=== PATIENT | female | born 1940 | race Caucasian/White ===

== ENCOUNTER 2016-09-06 06:10 | Day surgery (SDC) | payer OTHER ==
[2016-09-06] VITALS (9 sets, daily range): BP systolic 84–154; BP diastolic 55–86; PULSE 70–85; RESP 16–20; TEMP 98–98.3; O2SAT 92–97
[~2016-09-06] VITALS: Ht 160 cm; Wt 78.2 kg
[~2016-09-06 06:10] MED LIST: ASPI81TA82 PO; ATOR20TA42 PO; CALC-179 PO; GLUC750T22 PO; IRON28TA PO; LISI-372 PO; TAB-TAB PO; VITA500015 PO
[2016-09-06] MEDS ORDERED: GLUC500T4 PO (06:49)
[2016-09-06] MEDS ORDERED: PRAV20TA2 PO (06:49)
[2016-09-06] MEDS ORDERED: LISI20TA3 PO (06:49)
[2016-09-06] MEDS ORDERED: ASPI81CH CHEW (06:49)
[2016-09-06] MEDS ORDERED: CHOL20005 PO (06:49)
[2016-09-06] MEDS ORDERED: AMLO5TAB2 PO (06:49)
[2016-09-06] MEDS ORDERED: MULTTAB67 PO (06:49)
[2016-09-06] MEDS ORDERED: CALC1TAB87 PO (06:49)
[2016-09-06] MEDS ORDERED: SODIUM CHLOR 0.9% 1000 ML INJ 1,000 ML IV SCH (07:00)
[2016-09-06] MEDS ORDERED: LIDOCAINE HCL 1% 20 ML VIAL ONE (07:49)
[2016-09-06] MEDS ORDERED: fentaNYL CITRATE 250 MCG/5 ML AMP ONE (08:09)
[2016-09-06] MEDS ORDERED: MIDAZOLAM HCL 5 MG/5 ML VIAL ONE (08:09)
--- NOTE | 2016-09-06 12:18 | RADRPT ---
EXAM DATE/TIME: 09/06/2016 08:39 [place] COMPARISON: No previous studies available for comparison. INDICATIONS : Elevated transaminase level. SEDATION TIME: 30 minutes BIOPSY SITE: Right MEDICATION(S): 1.) 2 mg midazolam (Versed) IV 2.) 100 mcg fentanyl (Sublimaze) IV DEVICE(S): 1.) 18 gauge BioPince needle MEDICAL HISTORY : Diverticullitis. SURGICAL HISTORY : None. ENCOUNTER: Initial ACUITY: 1 day PAIN SCORE: 0/10 LOCATION: Right A total of one core specimen(s) were obtained and sent to the laboratory for pathologic evaluation. PROCEDURE: 1. CT guided liver biopsy. 2. Conscious sedation with continuous EKG and oximetry monitoring. 3. EKG and oximetry remained stable throughout the procedure. Prior to the procedure informed consent was obtained. Any appropriate prior imaging studies were rev iewed. Using automated exposure control and adjustment of the mA and/or kV according to patient size, radiat ion dose was kept as low as reasonably achievable to obtain optimal diagnostic quality images. The site was prepped in a sterile fashion. Full sterile technique was used, including cap, mask, claire rile gloves and gown and a large sterile sheet. Hand hygiene and 2% chlorhexidine and/or betadine/al cohol prep was utilized per protocol for cutaneous antisepsis. The skin and subcutaneous tissues wer e infiltrated with local anesthetic solution. With CT guidance the previously identified target was localized. Biopsy was performed using the presc ribed needle as above. Adequate hemostasis was obtained with compression at the puncture site. Follow-up CT scan reveals no hemorrhage. The patient tolerated the procedure well and there were no complications. The patient was returned to the Radiology Outpatient Unit in stable condition. CONCLUSION: Uncomplicated CT guided biopsy. Tony Jim MD FACR on September 06, 2016 at 12:16 Board Certified Radiologist. This report was verified electronically.
== END 2016-09-06 12:45 | disposition home or self-care (01) ==
LOC: HRAD 06:10 → HRIP 06:18 → HRAD 12:45
PROVIDERS: ATTEND Physician Assistant Medical
DX: K76.0 Fatty (change of) liver, not elsewhere classified (principal); I10 Essential (primary) hypertension; F17.200 Nicotine dependence, unspecified, uncomplicated; Z96.652 Presence of left artificial knee joint; K57.92 Diverticulitis of intestine, part unspecified, without perforation or abscess without bleeding
CPT/HCPCS: 47000; 77012; 88307; 88313; J2250; J3010; J7030